=== PATIENT | female | born 1980 ===

== ENCOUNTER 2022-05-15 20:31 | Outpatient (CLI) | payer SELFPAY ==
[2022-05-15 22:26] VITALS: BP 112/70
== END 2022-05-15 22:31 | disposition home or self-care (01) ==
LOC: EDBD 20:31 → TRG 20:31 → LD 20:32 → TRG 22:31
PROVIDERS: ATTEND Obstetrics & Gynecology
DX: Z34.93 Encounter for supervision of normal pregnancy, unspecified, third trimester (principal); Z3A.38 38 weeks gestation of pregnancy
CPT/HCPCS: 82962

== ENCOUNTER 2022-05-16 20:41 | Inpatient (IN) | payer SELFPAY ==
--- NOTE | 2022-05-16 23:33 | Ultrasound Report ---
ULTRASOUND OBSTETRIC LIMITED ULTRASOUND BIOPHYSICAL PROFILE INDICATION / CLINICAL INFORMATION: Evaluate amniotic fluid index. COMPARISON: None available. FINDINGS: BREATHING MOVEMENT = 2 GROSS BODY MOVEMENT = 2 TONE = 2 QUALITATIVE AMNIOTIC FLUID VOLUME = 2 TOTAL BIOPHYSICAL SCORE = 8/8 AMNIOTIC FLUID INDEX (cm) = 4.7 PRESENTATION: Cephalic. HEART RATE (beats per minute): 135 ADDITIONAL FINDINGS: None. IMPRESSION: 1. Biophysical Score = 8/8 2. Decreased amniotic fluid index of 4.7 cm. Signer Name: Jim Hancock MD Signed: 05/16/2022 11:29 PM Workstation Name: [id number]
[2022-05-17] MEDS ORDERED: CARBOPROST TROMETHAMINE 250 MCG/1 ML INJ IM PRN (04:54)
[2022-05-17] MEDS ORDERED: ePHEDrine SULFATE 50 MG/1 ML INJ IV PRN ×2 (04:54→08:27)
[2022-05-17] MEDS ORDERED: miSOPROStol 200 MCG TAB PR PRN (04:54)
[2022-05-17] MEDS ORDERED: OXYTOCIN 10 UNIT/1 ML INJ IM PRN (04:54)
[2022-05-17] MEDS ORDERED: PROMETHAZINE 25 MG TAB PO PRN (04:54)
[2022-05-17] MEDS ORDERED: fentaNYL 100 MCG/2 ML INJ IV PRN (04:54)
[2022-05-17] MEDS ORDERED: PENICILLIN G POTASSIUM 5 MIL.UNITS in SODIUM CHLORIDE 0.9% 50 ML IV ONE (04:54)
[2022-05-17] MEDS ORDERED: LIDOCAINE (2%) 20 MG/1 ML VIAL 20 ML MDV INFILTRATI ONE ×2 (04:54→20:04)
[2022-05-17] MEDS ORDERED: NalbUPHINE 10 MG/1 ML INJ IV PRN (04:54)
[2022-05-17] MEDS ORDERED: ACETAMINOPHEN 325 MG TAB PO PRN (04:54)
[2022-05-17] MEDS ORDERED: LOPERAMIDE 2 MG CAP PO PRN (04:54)
[2022-05-17] MEDS ORDERED: TERBUTALINE 1 MG/1 ML INJ SUB-Q PRN (04:54)
[2022-05-17] MEDS ORDERED: METHYLERGONOVINE MALEATE 0.2 MG/ML VIAL IM PRN (04:54)
[2022-05-17] MEDS ORDERED: MINERAL OIL 30 ML ORAL LIQD PO PRN (04:54)
[2022-05-17] MEDS ORDERED: OXYTOCIN DRIP 30 UNITS/500 ML BAG IV SCH ×2 (05:00)
--- NOTE | 2022-05-17 05:08 | History and Physical Report ---
<BESSIE MONAHAN - Last Filed: 05/17/22 05:03> History of Present Illness Date of examination: 05/17/22 Chief complaint: sent for scheduled induction with pregest DM on insulin. History of present illness: at 38.3wks by LMP per pt report and care [facility]. Pt states she was sent home twice and therefore came in today for her scheduled induction. Pt admits to movement, denies LOF or vag bleed, pt c/o painful ctx that are increasing in intensity and she desires epidural for same. Past History Past Medical History: other (Obesity, pre-Gestational diabetes controlled on insulin) Past Surgical History: no surgical history Social history: no significant social history - Obstetrical History Expected Date of Delivery: 05/17/22 Actual Gestation: 40 Week(s) 0 Day(s) : 1 Number of Living Children: 0 Medications and Allergies Allergies Allergy/AdvReac Type Severity Reaction Status Date / Time No Known Allergies Allergy Verified 05/17/22 05:02 Active Meds: Active Medications Acetaminophen (Acetaminophen 325 Mg Tab) 650 mg PO Q4H PRN PRN Reason: Pain, Mild (1-3) Carboprost Tromethamine (Carboprost Tromethamine 250 Mcg/1 Ml Inj) 250 mcg IM O NCE PRN PRN Reason: Uterine Bleeding Ephedrine Sulfate (Ephedrine Sulfate 50 Mg/1 Ml Inj) 10 mg IV Q2M PRN PRN Reason: Hypotension Fentanyl (Fentanyl 100 Mcg/2 Ml Inj) 100 mcg IV Q2H PRN PRN Reason: Pain,Severe (7-10) LABOR PAIN Oxytocin/Sodium Chloride (Pitocin/Ns 30 Unit/500ml) 30 units in 500 mls @ 2 mls/hr IV TITR MATTEO; Protocol Lactated Ringer's (Lactated Ringers) 1,000 mls @ 125 mls/hr IV DIRECT MATTEO Oxytocin/Sodium Chloride (Pitocin/Ns 30 Unit/500ml) 30 units in 500 mls @ 40 mls/hr IV TITR MATTEO; Protocol Penicillin G Potassium 5 mil. (units/ Sodium Chloride) 50 mls @ 100 mls/hr IV ONCE ONE; Protocol Stop: 05/17/22 05:23 Lidocaine (Lidocaine (2%) 20 Mg/1 Ml Vial 20 Ml Mdv) 20 ml INFILTRATI ONCE ONE Stop: 05/17/22 04:55 Loperamide HCl (Loperamide 2 Mg Cap) 2 mg PO ONCE PRN PRN Reason: give with Hemabate Methylergonovine Maleate (Methylergonovine Maleate 0.2 Mg/Ml Vial) 0.2 mg IM ONCE PRN PRN Reason: Uterine Bleeding Mineral Oil (Mineral Oil 30 Ml Oral Liqd) 30 ml PO QHS PRN PRN Reason: Constipation Misoprostol (Misoprostol 200 Mcg Tab) 800 mcg [place] ONCE PRN PRN Reason: Uterine Bleeding Nalbuphine HCl (Nalbuphine 10 Mg/1 Ml Inj) 10 mg IV Q2H PRN PRN Reason: Pain, Moderate (4-6) Oxytocin (Oxytocin 10 Unit/1 Ml Inj) 10 unit IM ONCE PRN PRN Reason: Uterine Bleeding Promethazine HCl (Promethazine 25 Mg Tab) 25 mg PO Q6H PRN PRN Reason: Nausea And Vomiting Terbutaline Sulfate (Terbutaline 1 Mg/1 Ml Inj) 0.25 mg SUB-Q ONCE PRN PRN Reason: Hyperstimulation/Hypertonicity Review of Systems All systems: negative (ctx) - Vital Signs Vital signs: Vital Signs Temp Resp Pulse Ox 98.2 F 14 100 05/16/22 20:53 05/16/22 20:53 05/16/22 20:53 Temp Pulse Resp BP Pulse Ox 98.2 F 100 H 14 123/83 98 05/16/22 20:53 05/17/22 04:51 05/16/22 20:53 05/16/22 20:57 05/17/22 04:51 - Physical Exam Breasts: Positive: deferred Cardiovascular: Regular rate Lungs: Positive: Normal air movement Abdomen: Positive: soft (obese) Genitourinary (Female): Positive: normal external genitalia Vagina: Positive: normal moisture Uterus: Positive: enlarged (non-tender gravid) - Obstetrical FHR: category 1 Uterine Contraction Monitor Mode: External Cervical Dilatation: 4 (3) Cervical Effacement Percentage: 70 station: -2 Uterine Contraction Pattern: Irregular Uterine Contraction Intensity: Mild Results All other labs normal. Assessment and Plan Term IUP with pre-Gestational diabetes on both Insulin and oral hypoglycemic agents, Oligohydramnios from U/S done on 05/17/22 here at [facility]; Pt in latent labor; H/O Hypothyroidism on synthroid med, morbid obesity 1. Admit to labor and delivery, will do ROM plus and obtain records later this am 2. Will hold long acting insulin and do accucheck every 2hrs with SSI; will also hold oral hypoglycemic; will check hgb A1c and CMP 3. Will give PCN for GBS coverage until records obtained 4. Augment with pitocin until records obtained 5. May have IV pain med or epidural when desired. All questions encouraged and answered using the japanese interpreter <GLENIS CHILEL - Last Filed: 05/17/22 11:52> History of Present Illness Date of admission: 05/17/22 04:54 History of present illness: This patient received her care at [facility], not [facility] Medications and Allergies Active Meds: Active Medications Acetaminophen (Acetaminophen 325 Mg Tab) 650 mg PO Q4H PRN PRN Reason: Pain, Mild (1-3) Carboprost Tromethamine (Carboprost Tromethamine 250 Mcg/1 Ml Inj) 250 mcg IM ONCE PRN PRN Reason: Uterine Bleeding Ephedrine Sulfate (Ephedrine Sulfate 50 Mg/1 Ml Inj) 10 mg IV Q2M PRN PRN Reason: Hypotension Ephedrine Sulfate (Ephedrine Sulfate 50 Mg/1 Ml Inj) 10 mg IV Q2M PRN PRN Reason: Hypotension Fentanyl (Fentanyl 100 Mcg/2 Ml Inj) 100 mcg IV Q2H PRN PRN Reason: Pain,Severe (7-10) LABOR PAIN Oxytocin/Sodium Chloride (Pitocin/Ns 30 Unit/500ml) 30 units in 500 mls @ 2 mls/hr IV TITR MATTEO; Protocol Last Admin: 05/17/22 11:07 Dose: 2 ml/hr, 2 mls/hr Lactated Ringer's (Lactated Ringers) 1,000 mls @ 125 mls/hr IV DIRECT MATTEO Last Admin: 05/17/22 10:52 Dose: 125 mls/hr Oxytocin/Sodium Chloride (Pitocin/Ns 30 Unit/500ml) 30 units in 500 mls @ 40 mls/hr IV TITR MATTEO; Protocol Fentanyl/Bupivacaine/Sodium Chlor (Fentanyl-Bupiv 2 Mcg/Ml-0.125%) 200 mcg in 100 mls @ 12 mls/hr EPIDURAL TITR MATTEO; Protocol Last Admin: 05/17/22 09:15 Dose: 12 mls/hr Loperamide HCl (Loperamide 2 Mg Cap) 2 mg PO ONCE PRN PRN Reason: give with Hemabate Methylergonovine Maleate (Methylergonovine Maleate 0.2 Mg/Ml Vial) 0.2 mg IM ONCE PRN PRN Reason: Uterine Bleeding Mineral Oil (Mineral Oil 30 Ml Oral Liqd) 30 ml PO QHS PRN PRN Reason: Constipation Misoprostol (Misoprostol 200 Mcg Tab) 800 mcg [place] ONCE PRN PRN Reason: Uterine Bleeding Nalbuphine HCl (Nalbuphine 10 Mg/1 Ml Inj) 10 mg IV Q2H PRN PRN Reason: Pain, Moderate (4-6) Naloxone HCl (Naloxone 0.4 Mg/1 Ml Inj) 0.2 mg IV Q5MIN PRN PRN Reason: Respiratory sedation Oxytocin (Oxytocin 10 Unit/1 Ml Inj) 10 unit IM ONCE PRN PRN Reason: Uterine Bleeding Promethazine HCl (Promethazine 25 Mg Tab) 25 mg PO Q6H PRN PRN Reason: Nausea And Vomiting Terbutaline Sulfate (Terbutaline 1 Mg/1 Ml Inj) 0.25 mg SUB-Q ONCE PRN PRN Reason: Hyperstimulation/Hypertonicity - Vital Signs Vital signs: Vital Signs Temp Resp Pulse Ox 98.2 F 14 100 05/16/22 20:53 05/16/22 20:53 05/16/22 20:53 Temp Pulse Resp BP Pulse Ox 98 F 102 H 20 106/56 96 05/17/22 10:49 05/17/22 11:49 05/17/22 10:49 05/17/22 11:39 05/17/22 11:49 Results Result Diagrams: 05/17/22 06:33 05/17/22 06:33 Abnormal lab results 05/17/22 05/17/22 Range/Units 06:33 06:33 Sodium 135 L (137-145) mmol/L Carbon Dioxide 18 L (22-30) mmol/L Creatinine 0.4 L (0.6-1.2) mg/dL Hemoglobin A1c 7.3 H (4-6) % Alkaline Phosphatase 216 H (35-129) units/L Albumin 3.1 L (3.9-5) g/dL All other labs normal.
[2022-05-17 07:23] LABS: Hematocrit 38.1 % (30.3-42.9); Hemoglobin 12.6 gm/dl (10.1-14.3); Mean Corpuscular HGB Conc 33 % (30-34); Mean Corpuscular Volume 89 fl (79-97); Platelet Count 274 K/mm3 (140-440); Red Blood Count 4.29 M/mm3 (3.65-5.03); Red Cell Distribution Width 15.2 % (13.2-15.2)
[2022-05-17 07:44] LABS: Alanine Aminotransferase 14 units/L (7-56); Albumin 3.1 g/dL (3.9-5); Blood Urea Nitrogen 9 mg/dL (7-17); Calcium 9.2 mg/dL (8.4-10.2); Hemolysis Index 1
[2022-05-17 07:49] LABS: BUN/Creatinine Ratio 23
[2022-05-17] MEDS ORDERED: BUPIVACAINE/PF (0.25%) 2.5 MG/ML 10 ML VIAL INFILTRATI ONE (08:02)
[2022-05-17] MEDS ORDERED: NALOXONE 0.4 MG/1 ML INJ IV PRN (08:27)
--- NOTE | 2022-05-17 08:29 | Anesthesia Consultation ---
Anesthesia Consult and Med Hx Date of service: 05/17/22 - Airway Anesthetic Teeth Evaluation: Good ROM Head & Neck: Adequate Mental/Hyoid Distance: Adequate Mallampati Class: Class II Intubation Access Assessment: Probably Good - Pulmonary Exam CTA: Yes - Cardiac Exam Cardiac Exam: RRR - Pre-Operative Health Status ASA Pre-Surgery Classification: ASA2 Proposed Anesthetic Plan: Epidural - Pulmonary Hx Smoking: No Hx Asthma: No Hx Respiratory Symptoms: No SOB: No COPD: No Home Oxygen Therapy: No Hx Pneumonia: No Hx Sleep Apnea: No - Cardiovascular System Hx Hypertension: No Hx Coronary Artery Disease: No Hx Heart Attack/AMI: No Hx Angina: No Hx Percutaneous Transluminal Coronary Angioplasty (PTCA): No Hx Cardia Arrhythmia: No Hx Pacemaker: No Hx Internal Defibrillator: No Hx Valvular Heart Disease: No Hx Heart Murmur: No Hx Peripheral Vascular Disease: No - Central Nervous System Hx Neuromuscular Disorder: No Hx Seizures: No CVA: No Hx Back Pain: No Hx Psychiatric Problems: No - Gastrointestinal Hx Ulcer: No Hx Gastroesophageal Reflux Disease: No - Endocrine Hx Renal Disease: No Hx End Stage Renal Disease: No Hx Cirrhosis: No Hx Liver Disease: No Hx Insulin Dependent Diabetes: Yes Hx Non-Insulin Dependent Diabetes: No Hx Thyroid Disease: No Hx Hypothyroidism: No Hx Hyperthyroidism: Yes - Hematic Hx Anemia: No Hx Sickle Cell Disease: No - Other Systems Hx Alcohol Use: No Hx Substance Use: No Hx Cancer: No Hx Obesity: Yes
--- NOTE | 2022-05-17 08:30 | Anesthesia Day of Surgery ---
Anesthesia Day of Surgery - Day of Surgery Patient Examined: Yes Patient H&P Reviewed: Yes Patient is NPO: Yes Beta Blockers: No Cardiac Clearance: No Pulmonary Clearance: No Kg's Test: N/A
[2022-05-17] MEDS: LACTATED RINGERS 1,000 ML IV SCH ×3 (08:32→19:17)
--- NOTE | 2022-05-17 08:33 | Progress Note ---
Labor Epidural - Labor Epidural Start Time: 08:09 Stop Time: 08:14 Performed by:: CALIXTO ZIMMERMAN Procedure: Epidural Requested for Labor Pain. H&P and PT Chart reviewed and consent obtained. Time out performed and the procedure was explained, all questions answered. Patient was placed in a sitting position with monitors applied. The PTs back was prepped and draped in usual sterile fashion. The Skin was localized with 3 mL of 1% lidocaine at L3-L4. A 17-gauge Touhy epidural needle was advanced to MYRA with saline at 7 cm and no blood/CSF was noted via epidural needle. Epidural catheter was advanced to 12 cm. There was negative aspiration for blood and CSF in the catheter and negative response to a test dose of 3 ml 1.5% lidocaine w/ Epi and a sterile dressing was applied Patient tolerated the procedure well and there were no immediate complications noted.
[2022-05-17] MEDS: fentaNYL-BUPIV 2 MCG/ML-0.125% 200 MCG/100 ML BAG EPIDURAL SCH ×2 (09:15→16:20)
--- NOTE | 2022-05-17 13:36 | Event Note ---
Date: 05/17/22 S: Feels good, some pressure O: VE 5/80/-2, arom clear fluid, IUPC and FSE placed, Pit on 8mu A: Induction of labor @ 38 + weeks, Gest Diabetes P: Expect
[2022-05-17] MEDS: PENICILLIN G POTASSIUM 2.5 MIL.UNITS in SODIUM CHLORIDE 0.9% 50 ML IV SCH ×2 (15:05→18:55)
--- NOTE | 2022-05-17 18:24 | Event Note ---
Date: 05/17/22 S: Feeling more pressure O: VE C/C/+1, pit at 4 mu, epidural turned off A: Induction of labor for GDM P: Expect
--- NOTE | 2022-05-17 20:46 | Procedure Note ---
OB Delivery Note - Delivery Date of Delivery: 05/17/22 Surgeon: GLENIS CHILEL Estimated blood loss: other (150) - Vaginal Delivery presentation: vertex Delivery position: OA Intrapartum events: shoulder dystocia Delivery induction: oxytocin Delivery monitor: external FHT, external uterine, internal FHT, internal uterine Route of delivery: Delivery placenta: spontaneous Episiotomy: none Delivery laceration: 1st degree Delivery repair: vicryl Anesthesia: local, epidural Delivery comments: of a viable male 9# 1oz on 05/17. The shoulders were delivered with [place] and suprapubic pressure, the shoulder dystocia lasted dread 4 min. The cord was clamped and cut and the baby was taken to the warmer. Nicu team was called. Blood for cord gases were obtained. Apgars 8/9. Vaginal floor and perineal laceration repaired with 2-0 vicryl under local anesthesia. QBL 150cc - Infant A Gender: Male (9# 1 oz)
[2022-05-17] MEDS ORDERED: MAGNESIUM HYDROXIDE (MOM) ORAL LIQD UDC PO PRN (20:54)
[2022-05-17] MEDS ORDERED: diphenhydrAMINE 25 MG CAP PO PRN (20:54)
[2022-05-17] MEDS ORDERED: LANOLIN/ZINC/DIMETHICONE (LANSINOH) 7 GM TP PRN (20:54)
[2022-05-17] MEDS ORDERED: WITCH HAZEL/ GLYCERIN PAD TP PRN (20:54)
[2022-05-17] MEDS ORDERED: oxyCODONE /ACETAMINOPHEN 5-325MG TAB PO PRN (20:54)
[2022-05-17] MEDS ORDERED: ONDANSETRON 4 MG/2 ML INJ IV PRN (20:54)
[2022-05-17] MEDS: IBUPROFEN 800 MG TAB PO SCH (21:10)
[2022-05-18] MEDS: IBUPROFEN 800 MG TAB PO SCH (05:29)
--- NOTE | 2022-05-18 08:46 | Post Anesthesia Evaluation ---
- Post Anesthesia Evaluation Patient Participated: Yes Airway Patent: Yes Stable Respiratory Function: Yes Nausea/Vomiting: No Temp > 96.8F: Yes Pain Manageable: Yes Adequeate Hydration: Yes Anesthesia Complications: No Block Receding Appropriately: Yes Patient on Ventilator: No
--- NOTE | 2022-05-18 11:16 | Progress Note ---
Assessment and Plan A: PP Day #1 PreGestational Diabetes (Insulin Control) P: Follow Routine Orders Continue Insulin as ordered Diet Changed to GDM Diet Subjective - Subjective Date of service: 05/18/22 Patient reports: appetite normal, voiding normally, pain well controlled, flatus, bowel movement, ambulating normally : doing well, bottle feeding (and ) Objective - Vital Signs Latest vital signs: Vital Signs Temp Pulse Resp BP BP Pulse Ox Pulse Ox 05/18/22 08:30 98.6 F 86 20 108/67 98 05/18/22 06:29 18 05/18/22 05:29 18 05/18/22 04:29 98.4 F 91 H 20 121/62 97 05/17/22 22:53 99.2 F 102 H 18 126/70 97 100 05/17/22 22:08 90 125/71 05/17/22 21:46 94 H 126/73 05/17/22 21:13 102 H 95 05/17/22 21:10 18 05/17/22 21:08 98 H 121/58 95 05/17/22 21:03 95 H 96 05/17/22 20:58 107 H 95 05/17/22 20:53 100 H 97 05/17/22 20:48 111 H 95 05/17/22 20:47 109 H 94 05/17/22 20:43 106 H 96 05/17/22 20:38 110 H 132/67 95 05/17/22 20:33 117 H 97 05/17/22 20:28 103 H 98 05/17/22 20:23 103 H 94 05/17/22 20:21 98.0 F 108 H 122/57 05/17/22 20:19 106 H 98 05/17/22 20:14 108 H 98 05/17/22 20:09 101 H 97 05/17/22 20:08 115 H 141/63 05/17/22 20:04 115 H 99 05/17/22 19:59 137 H 99 05/17/22 19:54 116 H 100 05/17/22 19:49 111 H 99 05/17/22 19:44 100 H 100 05/17/22 19:39 97 H 98 05/17/22 19:34 102 H 98 05/17/22 19:29 91 H 98 05/17/22 19:24 102 H 96 05/17/22 19:22 97 H 142/79 05/17/22 19:19 92 H 99 05/17/22 19:14 92 H 99 05/17/22 19:09 96 H 96 05/17/22 19:08 103 H 130/84 05/17/22 19:05 92 H 94 05/17/22 19:04 94 H 97 05/17/22 18:59 91 H 97 05/17/22 18:54 95 H 97 05/17/22 18:53 106 H 121/71 05/17/22 18:49 101 H 98 05/17/22 18:44 96 H 97 05/17/22 18:42 94 H 94 05/17/22 18:39 112 H 97 05/17/22 18:37 103 H 125/77 05/17/22 18:34 96 H 97 05/17/22 18:29 107 H 98 05/17/22 18:24 101 H 99 05/17/22 18:23 112 H 126/76 05/17/22 18:19 104 H 98 05/17/22 18:14 98 H 99 05/17/22 18:09 93 H 98 05/17/22 18:07 90 115/60 05/17/22 18:04 99 H 99 05/17/22 17:59 97 H 98 05/17/22 17:54 97 H 97 05/17/22 17:52 97.9 F 88 19 110/57 05/17/22 17:49 98 H 97 05/17/22 17:47 91 H 94 05/17/22 17:44 102 H 100 05/17/22 17:39 90 99 05/17/22 17:37 86 117/63 05/17/22 17:34 87 99 05/17/22 17:29 96 H 99 05/17/22 17:24 89 98 05/17/22 17:22 91 H 114/61 05/17/22 17:19 88 99 05/17/22 17:14 88 99 05/17/22 17:09 95 H 99 05/17/22 17:07 90 109/62 05/17/22 17:04 86 100 05/17/22 16:59 91 H 99 05/17/22 16:54 87 99 05/17/22 16:52 84 111/60 05/17/22 16:49 92 H 100 05/17/22 16:44 87 100 05/17/22 16:39 88 99 05/17/22 16:38 88 113/56 05/17/22 16:34 86 99 05/17/22 16:29 88 99 05/17/22 16:24 92 H 100 05/17/22 16:23 86 110/62 05/17/22 16:19 87 100 05/17/22 16:14 89 100 05/17/22 16:09 90 100 05/17/22 16:07 90 113/60 05/17/22 16:04 88 100 05/17/22 15:59 88 98 05/17/22 15:54 93 H 99 05/17/22 15:52 86 114/63 05/17/22 15:49 93 H 98 05/17/22 15:44 88 98 05/17/22 15:39 100 H 98 05/17/22 15:37 86 115/65 05/17/22 15:34 94 H 99 05/17/22 15:29 96 H 94 05/17/22 15:24 100 H 95 05/17/22 15:22 99 H 114/66 05/17/22 15:19 97 H 97 05/17/22 15:16 88 94 05/17/22 15:14 92 H 96 05/17/22 15:10 97 H 89 05/17/22 15:09 96 H 96 05/17/22 15:07 97 H 113/61 05/17/22 15:05 97.9 F 20 05/17/22 15:04 93 H 97 05/17/22 14:59 96 H 96 05/17/22 14:54 94 H 97 05/17/22 14:53 94 H 121/65 05/17/22 14:51 103 H 94 05/17/22 14:49 101 H 97 05/17/22 14:44 95 H 96 05/17/22 14:39 92 H 94 05/17/22 14:38 91 H 93 05/17/22 14:37 88 111/55 05/17/22 14:34 100 H 94 05/17/22 14:32 87 94 05/17/22 14:29 85 95 05/17/22 14:27 105 H 90 05/17/22 14:24 96 H 95 05/17/22 14:22 82 105/55 05/17/22 14:21 90 94 05/17/22 14:19 99 H 96 05/17/22 14:14 90 96 05/17/22 14:09 83 98 05/17/22 14:04 81 97 05/17/22 13:59 87 98 05/17/22 13:54 89 98 05/17/22 13:52 82 109/56 05/17/22 13:49 91 H 99 05/17/22 13:44 100 H 98 05/17/22 13:39 85 98 05/17/22 13:38 82 115/59 05/17/22 13:34 87 98 05/17/22 13:29 92 H 99 05/17/22 13:24 90 97 05/17/22 13:22 90 113/56 05/17/22 13:19 85 97 05/17/22 13:18 98 H 94 05/17/22 13:14 94 H 97 05/17/22 13:09 102 H 98 05/17/22 13:08 95 H 114/67 05/17/22 13:05 100 H 93 05/17/22 13:04 92 H 95 05/17/22 12:59 102 H 94 05/17/22 12:54 93 H 95 05/17/22 12:52 93 H 114/63 94 05/17/22 12:49 95 H 95 05/17/22 12:44 93 H 96 05/17/22 12:39 101 H 97 05/17/22 12:37 96 H 106/67 05/17/22 12:36 99 H 93 05/17/22 12:34 87 96 05/17/22 12:29 91 H 96 05/17/22 12:24 90 97 05/17/22 12:23 90 105/59 05/17/22 12:19 102 H 93 05/17/22 12:18 91 H 94 05/17/22 12:14 98 H 94 05/17/22 12:10 89 93 05/17/22 12:09 94 H 96 05/17/22 12:07 100 H 104/59 05/17/22 12:04 95 H 97 05/17/22 12:00 86 94 05/17/22 11:59 105 H 97 05/17/22 11:54 106 H 95 05/17/22 11:52 101 H 108/59 05/17/22 11:49 102 H 96 05/17/22 11:45 93 H 93 05/17/22 11:44 92 H 94 05/17/22 11:39 97 H 106/56 97 05/17/22 11:35 112 H 93 05/17/22 11:34 97 H 95 05/17/22 11:29 88 96 05/17/22 11:24 91 H 96 05/17/22 11:22 86 113/63 05/17/22 11:19 89 95 05/17/22 11:14 90 97 Intake and Output 05/17/22 05/18/22 05/18/22 22:59 06:59 14:59 Intake Total 1089.433 600 320 Output Total 1650 500 320 Balance -560.567 100 0 Intake: IV 1089.433 Lactated Ringers 1,000 ml 1000 @ 125 mls/hr IV DIRECT MATTEO Rx#:[id number] PITOCin/NS 30 UNIT/500ML 39.433 30 units In 500 ml @ 2 mls/hr IV TITR MATTEO Rx#: [id number] Pfizerpen 2.5 Mil.units 50 In NaCl 0.9% 50 ml @ 100 mls/hr IV Q4H MATTEO Rx#: [id number] Oral 320 Intake, Free Water 600 Output: Urine 1650 500 320 Condom Catheter 450 Indwelling Catheter 1200 Void 500 320 Other: Total, Intake Amount 320 Total, Output Amount 450 250 320 Estimated Blood Loss 150 - Exam Breasts: Present: normal Cardiovascular: Present: Regular rate Lungs: Present: Clear to auscultation, Normal air movement Abdomen: Present: normal appearance, soft, normal bowel sounds Uterus: Present: normal, firm, fundal height below umbilicus Extremities: Present: normal - Labs Labs: Abnormal lab results 05/17/22 Range/Units 22:24 POC Glucose 169 H (70-105) mg/dL
[2022-05-18 11:35] LABS: Hematocrit 32.3 % (30.3-42.9); Hemoglobin 10.9 gm/dl (10.1-14.3)
--- NOTE | 2022-05-18 13:02 | Ultrasound Report ---
Please see combined report from the same date. Signer Name: Nick Heller MD Signed: 05/18/2022 12:57 PM Workstation Name: [id number]
[2022-05-18 17:15] LABS: Hepatitis C Virus Antibody Non-Reactive (NonReactive)
[2022-05-19] MEDS: IBUPROFEN 800 MG TAB PO SCH ×2 (00:05→05:42)
--- NOTE | 2022-05-19 09:31 | Discharge Summary ---
Providers - Providers Date of Admission: 05/17/22 04:54 Date of discharge: 05/19/22 Attending physician: BESSIE MONAHAN Primary care physician: BESSIE MONAHAN Hospitalization Reason for admission: induction of labor, IUP at term, other (pre-gest DM on oral hypoglycemic and insulin here ) Delivery: (with shoulder dystocia) Laceration: 1st degree complications: none Discharge diagnosis: IUP at term delivered [place] baby: male Hospital course: Term pt with pregestational diabetes on oral hypoglycemic and insulin therapy. Pt given pitocin induction and had with shoulder dystocia and baby doing well . Pt continued to take oral hypoglycemic with good blood sugar control. Pt discharge home on day#2 to follow up in clinic in one wk. Pt instructed to continue accucheck and bring record to clinic in one wk. Condition at discharge: Good Disposition: 01 HOME / SELF CARE / HOMELESS Plan - Provider Discharge Summary Additional instructions: [] Smoking cessation referral if applicable(refer to patient education folder for contact #) [] Refer to [facility]'s [facility] Booklet Call your doctor immediately for: * Fever > 100.5 * Heavy vaginal bleeding ( >1 pad per hour) * Severe persistent headache * Shortness of breath * Reddened, hot, painful area to leg or breast * Drainage or odor from incision. * Keep incision clean and dry at all times and follow doctor's instructions regarding bathing/showering - Follow up plan Follow up: BESSIE MONAHAN MD [Primary Care Provider] - 7 Days
--- NOTE | 2022-05-19 09:31 | Progress Note ---
Assessment and Plan PPD#2 , Pre-gest DM doing well 1. Discharge pt home to continue accucheck and follow up in clinic in 1wks 2. All questions encouraged and answered Subjective Date of service: 05/19/22 Principal diagnosis: PPD#2 , Pre-gest DM controlled with oral meds Interval history: Pt has no complaints and wants to go home. pt is breast feeding. denies pelvic pain and vag bleed wnl. Objective - Constitutional Vitals: Vital Signs - 12hr 05/19/22 05/19/22 05/19/22 00:05 00:56 05:42 Temperature 97.9 F Pulse Rate 79 Respiratory 18 18 16 Rate Blood Pressure 111/61 Blood Pressure [Left] O2 Sat by Pulse 97 Oximetry O2 Sat by Pulse Oximetry [ Throughout] 05/19/22 05/19/22 07:40 08:24 Temperature 97.4 F L Pulse Rate 68 Respiratory 16 Rate Blood Pressure Blood Pressure 119/66 [Left] O2 Sat by Pulse 98 Oximetry O2 Sat by Pulse 98 Oximetry [ Throughout] General appearance: Present: no acute distress - Neck Neck: normal ROM - Respiratory Respiratory effort: normal - Breasts Breasts: deferred - Cardiovascular Rhythm: regular Extremities: No edema - Gastrointestinal General gastrointestinal: Present: soft, non-tender - Genitourinary Female genitourinary: other (fundus firm 2cm below umbilicus, non-tender; lochia scant) - Integumentary Integumentary: warm, dry - Neurologic Neurologic: moves all extremities - Psychiatric Psychiatric: cooperative - Labs CBC & Chem 7: 05/18/22 10:35 05/17/22 06:33 Medications & Allergies - Medications Allergies/Adverse Reactions: Allergies No Known Allergies Allergy (Verified 05/17/22 05:02) Home Medications: Home Medications Medication Instructions Recorded Confirmed Last Taken Type No Known Home Medications [No 05/18/22 05/18/22 Unknown History Reported Home Medications] Active Medications: Generic Name Dose Route Start Last Admin Trade Name Freq PRN Reason Stop Dose Admin Bisacodyl 10 mg 05/17/22 20:54 Bisacodyl 10 Mg Rect Supp [place] BID PRN Constipation Diphenhydramine HCl 25 mg 05/17/22 20:54 Diphenhydramine 25 Mg Cap PO Q6H PRN Itching Ibuprofen 800 mg 05/17/22 21:00 05/19/22 05:42 Ibuprofen 800 Mg Tab PO 800 mg Q6H MATTEO Administration Magnesium Hydroxide 30 ml 05/17/22 20:54 Magnesium Hydroxide (Mom) Oral Liqd Udc PO HS PRN Constipation Multi-Ingredient Ointment 1 applic 05/17/22 20:54 Lanolin/Zinc/Dimethicone (Lansinoh) 7 Gm TP PRN PRN Sore Nipples Ondansetron HCl 4 mg 05/17/22 20:54 Ondansetron 4 Mg/2 Ml Inj IV Q8H PRN Nausea And Vomiting Oxycodone/Acetaminophen 1 tab 05/17/22 20:54 Oxycodone /Acetaminophen 5-325mg Tab PO Q6H PRN Pain, Moderate (4-6) Witch Karen/Glycerin 1 each 05/17/22 20:54 05/17/22 23:18 Witch Karen/ Glycerin Pad TP 1 each PRN PRN Administration Hemorrhoid/cleansing/soothing
[2022-05-19] MEDS ORDERED: MEASLES, MUMPS & RUBELLA 12,500 UNIT/0.5 ML VACCINE SUB-Q ONE (11:30)
[2022-05-19 12:27] VITALS: BP 125/70
== END 2022-05-19 14:45 | disposition home or self-care (01) | DRG 807 ==
LOC: TRG 20:41 → APU 20:42 → LD 05-17 04:54 → TRG 05-17 04:54 → OB 05-17 22:34
PROVIDERS: ADMIT Obstetrics & Gynecology; ATTEND Obstetrics & Gynecology
PROC: 10E0XZZ Delivery of Products of Conception, External Approach (ICD-10-PCS; principal; 2022-05-17)
PROC: 10907ZC Drainage of Amniotic Fluid, Therapeutic from Products of Conception, Via Natural or Artificial Opening (ICD-10-PCS; 2022-05-17)
PROC: 3E0R3BZ Introduction of Anesthetic Agent into Spinal Canal, Percutaneous Approach (ICD-10-PCS; 2022-05-17)
PROC: 00HU33Z Insertion of Infusion Device into Spinal Canal, Percutaneous Approach (ICD-10-PCS; 2022-05-17)
PROC: 10H07YZ Insertion of Other Device into Products of Conception, Via Natural or Artificial Opening (ICD-10-PCS; 2022-05-17)
PROC: 3E033VJ Introduction of Other Hormone into Peripheral Vein, Percutaneous Approach (ICD-10-PCS; 2022-05-17)
PROC: 0HQ9XZZ Repair Perineum Skin, External Approach (ICD-10-PCS; 2022-05-17)
PROC: 3E0234Z Introduction of Serum, Toxoid and Vaccine into Muscle, Percutaneous Approach (ICD-10-PCS; 2022-05-19)
DX: O24.429 Gestational diabetes mellitus in childbirth, unspecified control (principal); Z37.0 Single live birth; O41.00X0 Oligohydramnios, unspecified trimester, not applicable or unspecified; Z23 Encounter for immunization; Z20.822 Contact with and (suspected) exposure to COVID-19; Z3A.38 38 weeks gestation of pregnancy; O99.214 Obesity complicating childbirth; E66.01 Morbid (severe) obesity due to excess calories; O99.284 Endocrine, nutritional and metabolic diseases complicating childbirth; E03.9 Hypothyroidism, unspecified; O70.0 First degree perineal laceration during delivery; O66.0 Obstructed labor due to shoulder dystocia
CPT/HCPCS: 36415; 76815; 76819; 80053; 82962; 83036; 84439; 84443; 85014; 85018; 85027; 86592; 86706; 86762; 86803; 86850; 86900; 86901; 87806; 90707; G0378; J3490; J2540; J2590; J7120; U0003